=== PATIENT | female | born 1990 | race Caucasian/White ===

== ENCOUNTER 2016-05-19 18:54 | Emergency (ER) | payer OTHER ==
[~2016-05-19] VITALS: Ht 154.9 cm; Wt 79.4 kg
[2016-05-19 19:05] VITALS: Ht 154.9 cm; Wt 79.4 kg
[2016-05-19] MEDS ORDERED: GABA-113 PO (20:26)
[2016-05-19] MEDS ORDERED: GABA1CAP4 PO (20:26)
[2016-05-19] MEDS ORDERED: BUPR-83 PO (20:26)
[2016-05-19] MEDS ORDERED: SERT-234 PO (20:26)
[2016-05-19] MEDS ORDERED: DIVA125T18 PO (20:26)
--- NOTE | 2016-05-19 20:38 | DIAGNOSTIC IMAGING REPORT ---
CHEST ONE VIEW PORTABLE CLINICAL HISTORY: cough dyspnea COMPARISON STUDY: No previous studies for comparison. FINDINGS: Right cardiac border is slightly indistinct. Lungs otherwise are clear. Diaphragms smooth. IMPRESSION: Minimal right middle lobe infiltrate Electronically signed by: Abrahan Hopkins M.D. 05/19/2016 8:36 PM Dictated Date/Time: 05/19/2016 8:36 PM
[2016-05-19] MEDS ORDERED: AZITHROMYCIN 250 MG TAB PO STA (21:26)
[2016-05-19] MEDS ORDERED: ACETAMINOPHEN 500 MG TAB PO STA (21:26)
[2016-05-19] MEDS ORDERED: HYDROCODONE/HOMATROPINE SYRUP 5MG/1.5MG 5ML UDP PO STA (21:26)
[2016-05-19] MEDS ORDERED: ALBUTEROL HFA 8 GM INHALER INH ONE (21:30)
[2016-05-19] MEDS ORDERED: HYCODAN 60ML BOTTLE HOMEPACK PO ONE (21:30)
[2016-05-19 21:41] VITALS: BP 115/85; PULSE 63; TEMP 36.7; O2SAT 97
--- NOTE | 2016-05-19 21:46 | EMERGENCY ROOM VISIT NOTE ---
History Report prepared by Eddi: Shady Al Under the Supervision of: Dr. Ramon Jacobs M.D. First contact with patient: 20:15 Chief Complaint: ILLNESS Stated Complaint: COUGHING,SNEEZING,RUNNY NOSE,CONGESTION,FEVER History of Present Illness The patient is a 25 year old female who presents to the Emergency Room with complaints of worsening flu-like symptoms that began on Friday four days prior to arrival. The patient states that her symptoms began with cold-like symptoms and a persistent cough that progressively worsened over the past couple days. She is now complaining of a burning throat, nasal congestion, cough , and a headache. Her cough is producing small amounts of phlegm. She has not taken any Tylenol at this point. The patient denies LOC, chills, diaphoresis, visual changes, neck pain, chest pain, nausea, vomiting, abdominal pain, back pain, melena, hematochezia, urinary symptoms, numbness, weakness, lymphadenopathy, or other complaints. 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 A total of ten systems were reviewed and were otherwise negative. Past Medical & Surgical Medical Problems: (1) Anxiety (2) Depression Anxiety Depression Family History Cancer Diabetes mellitus Hypertension Seizures Social History Smoking Status: Current Every Day Smoker Marital Status: single Housing Status: other ( [email or web address]) Occupation Status: employed Current/Historical Medications Scheduled Azithromycin (Zithromax), 250 MG PO DAILY Bupropion (Wellbutrin), 100 MG PO DAILY Divalproex Sodium (Depakote), 50 MG PO HS Gabapentin (Neurontin), 300 MG PO QAM Gabapentin (Gabapentin), 600 MG PO HS Oseltamivir (Tamiflu), 75 MG PO BID Sertraline (Zoloft), 150 MG PO DAILY Allergies Coded Allergies: [place] (Unverified Allergy, Unknown, unknown, 05/19/16) Uncoded Allergies: evergreen (Allergy, Unknown, unknown, 05/19/16) Physical Exam Vital Signs Date Time Temp Pulse Resp B/P Pulse Ox O2 Delivery O2 Flow Rate FiO2 05/19/16 21:41 36.7 63 20 115/85 97 05/19/16 19:05 37.0 79 18 118/77 97 Room Air Physical Exam GENERAL: Awake, alert, mildly ill appearing, no distress HEAD: Normocephalic, atraumatic. No edema. EYES: Normal conjunctiva. Sclera non-icteric. EARS: Right TM normal. Left TM normal. NOSE: Mild congestion. OROPHARYNX: Lips, tongue, and mucosa unremarkable. No erythema or exudate. NECK: Supple. No nuchal rigidity. FROM. No adenopathy. Negative jolt accentuation test. RESPIRATORY: Crackles in the right lung vega. No wheezes rales or rhonchi. CARDIAC: Borderline tachycardic rate, normal rhythm. ABDOMEN: Soft, non distended. No tenderness to palpation. NEURO: Normal sensorium. SKIN: No rash or jaundice noted Medical Decision & Procedures ER Provider Diagnostic Interpretation: X ray results as stated below per my interpretation and radiologist interpretation. Other radiology results as stated below per my review and radiologist interpretation CHEST ONE VIEW PORTABLE CLINICAL HISTORY: cough dyspnea COMPARISON STUDY: No previous studies for comparison. FINDINGS: Right cardiac border is slightly indistinct. Lungs otherwise are clear. Diaphragms smooth. IMPRESSION: Minimal right middle lobe infiltrate Electronically signed by: Abrahan Hopkins M.D. 05/19/2016 8:36 PM Dictated Date/Time: 05/19/2016 8:36 PM Laboratory Results Test 05/19/16 20:25 Influenza Type A Antigen Neg for Influ A (NEG) Influenza Type B Antigen POS for Influ B (NEG) Laboratory results reviewed by me Medications Administered Medications (Trade) Dose Ordered Sig/Joaquin Route Start Time Stop Time Status Last Admin Dose Admin Acetaminophen (Tylenol Tab) 1,000 mg NOW STAT PO 05/19/16 21:26 05/19/16 21:29 DC 05/19/16 21:39 1,000 MG Azithromycin (Zithromax Tab) 500 mg NOW STAT PO 05/19/16 21:26 05/19/16 21:29 DC 05/19/16 21:40 500 MG Hydrocodone Bit/ Homatropine Methylb (Hycodan Elix Homepack 5/1.5MG/ 5ML) 1 homepack UD ONCE PO 05/19/16 21:30 05/19/16 21:31 DC 05/19/16 21:40 1 HOMEPACK Hydrocodone Bit/ Homatropine Methylb (Hycodan Syrup) 5 ml NOW STAT PO 05/19/16 21:26 05/19/16 21:29 DC 05/19/16 21:40 5 ML Albuterol (Ventolin Hfa Inhaler) 2 puffs NOW ONCE INH 05/19/16 21:30 05/19/16 21:31 DC 05/19/16 21:41 2 PUFFS ED Course 2120: The patient was evaluated in room A3. A complete history and physical exam was performed. 2125: Ordered Hydrocodone 5 mL PO, Azithromycin 500 mg PO, Tylenol 1000 mg PO. 2129: Albuterol 2 puffs INH, Hydrocodone 1 homepack. 2149: I reevaluated the patient. Discussed results and discharge instructions: She verbalized understanding and agreement. The patient is ready for discharge. Medical Decision Triage Nursing notes reviewed. The patient's presentation and history were concerning for flulike symptoms. Etiologies such as viral syndrome, otitis, pharyngitis, pneumonia, urinary tract infection, sepsis, bacteremia, meningitis, as well as others were entertained. The patient was evaluated. She has had flulike symptoms. She was given Tylenol. The patient underwent chest imaging. She had a flu saw performed. The patient has a positive influenza. She also has a pneumonia. The patient was given Zithromax, Hycodan, Tamiflu and a Ventolin MDI. I did discuss the need for respiratory contact precautions. The patient was instructed to notify her medical clinic about the treatment given here in the emergency department when she returns to duty. By the evaluation outlined above other emergent etiologies such as those listed in the differential, as well as others, were deemed relatively unlikely. The patient was informed about the findings as listed above. All questions were answered and she was pleased with the treatment. Return instructions were outlined and the patient was discharged in stable condition. The patient was referred to her medical department for follow-up when she returns back to her duty station for a recheck of the current condition. The chart was completed utilizing [employer] Speech voice recognition software. Grammatical errors, random word insertions, pronoun errors, and incomplete sentences are an occasional consequence of this system due to software limitations, ambient noise, and hardware issues. Any formal questions or concerns about the content, text, or information contained within the body of this dictation should be directly addressed to the physician for clarification. Impression Primary Impression: Influenza B Additional Impression: Pneumonia Scribe Attestation The scribe's documentation has been prepared under my direction and personally reviewed by me in its entirety. I confirm that the note above accurately reflects all work, treatment, procedures, and medical decision making performed by me. Departure Information Dispostion Home / Self-Care Prescriptions Oseltamivir (Tamiflu) 75 Mg Cap 75 MG PO BID, #9 CAP Prov: Ramon Jacobs MD 05/19/16 Azithromycin (ZITHROMAX) 250 Mg Tab 250 MG PO DAILY, #4 TAB Prov: Ramon Jacobs MD 05/19/16 Referrals No Doctor, Assigned (PCP) Forms HOME CARE DOCUMENTATION FORM, IMPORTANT VISIT INFORMATION, WORK / SCHOOL INSTRUCTIONS Patient Instructions My [facility] Additional Instructions PNEUMONIA INSTRUCTIONS: Diagnosis: Right middle lobe pneumonia Influenza B Tamiflu 75 mg twice daily for 5 days for the flu. Azithromycin(Zithromax) 250mg: Take one a day for 4 additional days. All antibiotics can cause diarrhea. If this occurs and you feel worse or it does not resolve in 1-2 days follow up with your doctor or return to the Emergency Department as this could be signs of serious underlying problems. Any medication can cause an allergic reaction, stop the pills immediately and return to the ER for rash, hives, breathing difficulties, or swelling. Albuterol Inhaler: Take 2 puffs four times daily for seven days, then as needed. Acetaminophen(Tylenol) may be used for fever or pain. Use 1000mg every six hours as needed. Avoid using more than 4000mg in a 24 hour period. AND/OR Ibuprofen(Motrin, Advil) may be used for fever or pain. Use 600mg every six hours as needed. Take with food. Avoid using more than 2400mg in a 24 hour period. Do not use 2400mg per day for more than three consecutive days without physician direction. Prolonged inappropriate use can lead to stomach upset or ulcers. Hycodan cough syrup: use one teaspoon every six hours only as needed for severe cough. It is best for use at night since it will cause sedation. This is a narcotic medication. Avoid alcohol, operating machinery or dangerous equipment, working on ladders or roofs, DRIVING, or situations where being under the influence may be dangerous. It is recommended to use an over-the- counter stool softener such as Colace, 100mg twice daily while taking this medication to avoid constipation. Review the package insert for all your medications. This is necessary as important health information is provided for your benefit and current care. Controlling your fever with Tylenol and Ibuprofen as above will make you feel better. Rest and drink plenty of fluids. Avoid strenuous activity until your symptoms resolve and your breathing returns to normal. Return to the ER for chest pain, difficulty breathing, persistent fevers, vomiting, worsening of your condition, or as needed. Follow up with medical when you return to duty station for a recheck of the current condition. Keep the discharge paperwork to show your treatment provided. Problem Qualifiers
[2016-05-19] MEDS ORDERED: AZIT250T5 PO (21:48)
[2016-05-19] MEDS ORDERED: OSEL75CA12 PO (21:49)
== END 2016-05-19 21:43 | disposition home or self-care (01) ==
LOC: C.EDB 18:55 → C.EDA 21:43
DX: J11.00 Influenza due to unidentified influenza virus with unspecified type of pneumonia (principal); J18.9 Pneumonia, unspecified organism; F41.9 Anxiety disorder, unspecified; F32.9 Major depressive disorder, single episode, unspecified; F17.200 Nicotine dependence, unspecified, uncomplicated; Z79.899 Other long term (current) drug therapy; Z83.3 Family history of diabetes mellitus; Z82.49 Family history of ischemic heart disease and other diseases of the circulatory system; Z82.0 Family history of epilepsy and other diseases of the nervous system